=== PATIENT | female | born 1960 ===

== ENCOUNTER 2023-01-25 10:25 | Outpatient (REF) | payer MEDICAID, SELFPAY ==
[2023-01-25 12:26] LABS: Alanine Aminotransferase 27 U/L (0-31); Alkaline Phosphatase 70 U/L (39-117); Anion Gap 13 (12-20); Aspartate Amino Transferase 24 U/L (5-31); Bilirubin Direct 0.3 mg/dL (0.0-0.5); Bilirubin Total 0.7 mg/dL (0.0-1.0); Blood Urea Nitrogen 10 mg/dL (9-16); Calcium 9.2 mg/dL (8.4-10.2); Carbon Dioxide 29 mmol/L (22-29); Chloride 105 mmol/L (96-108); Cholesterol 110 mg/dL (<200); Estimated Glomerular Filt Rate > 60; Glucose Random 78 mg/dL (60-115); HDL Cholesterol 36 mg/dL (>40); LDL Cholesterol Calculated 49 mg/dL (<100); Potassium 3.6 mmol/L (3.3-5.1); Sodium 143 mmol/L (135-145); Total Protein 7.4 g/dL (6.5-8.0); Triglycerides 127 mg/dL (<150)
[2023-01-25 12:33] LABS: Estimated Average Glucose 194 mg/dL; Hemoglobin A1c % 8.4 % (<6.0)
[2023-01-25 16:08] LABS: Creatinine Urine 68.71 mg/dL
[2023-01-26 04:13] LABS: HIV AB/AG Nonreactive (Nonreactive); HIV Num 1 0.06 S/CO (0.00-0.99); ~HepC Num1 0.07 S/CO (0.00-0.79); ~Hepatitis C Antibody Nonreactive (Nonreactive)
== END 2023-01-25 10:26 | disposition home or self-care (01) ==
LOC: HO.HHCL 10:25
PROVIDERS: Visit Provider Family Medicine
DX: E11.59 Type 2 diabetes mellitus with other circulatory complications (principal); Z11.3 Encounter for screening for infections with a predominantly sexual mode of transmission; Z79.4 Long term (current) use of insulin
CPT/HCPCS: 36415; 80048; 80061; 80076; 82043; 82570; 83036; 86803; 87389

== ENCOUNTER 2023-09-16 11:04 | Outpatient (REF) | payer MEDICAID, SELFPAY ==
[2023-09-16 13:06] LABS: MANUAL DIFF FLAG NO
[2023-09-16 13:43] LABS: Basophils Absolute Auto 0.1 X10*3/uL (0.0-0.2); Basophils Percent Auto 1.9 % (0-2); Eosinophils Absolute Auto 0.1 X10*3/uL (0.0-0.4); Eosinophils Percent Auto 2.7 % (0-4); Hematocrit 42.6 % (37.0-47.0); Hemoglobin 14.3 g/dl (12.0-16.0); Imm Gran Abs Auto 0.01 X10*3/uL (0.00-0.03); Imm Gran Pct Auto 0.2 % (0.0-0.4); Lymphocytes Absolute Auto 1.7 X10*3/uL (1.2-4.9); Lymphocytes Percent Auto 32.7 % (20-40); Mean Corpuscular HGB Conc 33.6 g/dl (31.0-35.0); Mean Corpuscular Hemoglobin 30.3 pg (27.0-33.0); Mean Corpuscular Volume 90.3 fL (80.0-98.0); Mean Platelet Volume 11.6 fL (9.4-12.3); Monocytes Absolute Auto 0.6 X10*3/uL (0.1-1.2); Monocytes Percent Auto 10.5 % (2-11); Neutrophils Absolute Auto 2.7 x10*3/uL (2.0-8.3); Platelet Count 308 X10*3/uL (160-400); Red Blood Count 4.72 X10*6/uL (4.20-5.50); Red Cell Distribution Width 11.9 % (11.0-16.0); White Blood Count 5.3 X10*3/uL (4.8-10.8)
[2023-09-16 14:22] LABS: Alanine Aminotransferase 16 U/L (0-31); Albumin Level 3.7 g/dL (3.5-5.0); Alkaline Phosphatase 63 U/L (39-117); Anion Gap 12 (12-20); Aspartate Amino Transferase 15 U/L (5-31); Bilirubin Direct 0.1 mg/dL (0.0-0.5); Bilirubin Total 0.4 mg/dL (0.0-1.0); Blood Urea Nitrogen 21 mg/dL (9-16); Calcium 9.3 mg/dL (8.4-10.2); Carbon Dioxide 27 mmol/L (22-29); Chloride 105 mmol/L (96-108); Cholesterol 177 mg/dL (<200); Estimated Glomerular Filt Rate > 60; Glucose Random 213 mg/dL (60-115); HDL Cholesterol 33 mg/dL (>40); LDL Cholesterol Calculated 103 mg/dL (<100); Potassium 3.6 mmol/L (3.3-5.1); Sodium 140 mmol/L (135-145); Total Protein 7.3 g/dL (6.5-8.0); Triglycerides 207 mg/dL (<150)
== END 2023-09-16 11:05 | disposition home or self-care (01) ==
LOC: HO.HHCL 11:04
PROVIDERS: Visit Provider Internal Medicine
DX: E11.59 Type 2 diabetes mellitus with other circulatory complications (principal); Z79.4 Long term (current) use of insulin
CPT/HCPCS: 36415; 80048; 80061; 80076; 85025

== ENCOUNTER 2024-02-27 17:50 | Outpatient (REF) | payer MEDICAID, SELFPAY ==
[2024-02-28 09:00] LABS: Bacterial Vaginosis PCR NEGATIVE (Negative); Candida Group PCR NOT DETECTED (Not Detect); Candida glab krusei PCR NOT DETECTED (Not Detect); Trichomonas vaginalis PCR NOT DETECTED (Not Detect)
[2024-03-02 14:28] LABS: HPV mRNA E6/E7 Not Detected (Not Detected)
== END 2024-02-27 17:51 | disposition home or self-care (01) ==
LOC: HO.HHCLNP 17:50
PROVIDERS: Visit Provider Internal Medicine
DX: Z12.4 Encounter for screening for malignant neoplasm of cervix (principal)
CPT/HCPCS: 0352U; 87624; 88175

== ENCOUNTER 2024-07-21 14:53 | Outpatient (REF) | payer MEDICAID, SELFPAY ==
[2024-07-21 16:50] LABS: MANUAL DIFF FLAG NO
[2024-07-21 16:55] LABS: Basophils Absolute Auto 0.1 X10*3/uL (0.0-0.2); Basophils Percent Auto 1.4 % (0-2); Eosinophils Absolute Auto 0.2 X10*3/uL (0.0-0.4); Eosinophils Percent Auto 2.6 % (0-4); Hematocrit 43.3 % (37.0-47.0); Hemoglobin 14.8 g/dl (12.0-16.0); Imm Gran Abs Auto 0.02 X10*3/uL (0.00-0.03); Imm Gran Pct Auto 0.3 % (0.0-0.4); Lymphocytes Absolute Auto 1.7 X10*3/uL (1.2-4.9); Lymphocytes Percent Auto 26.4 % (20-40); Mean Corpuscular HGB Conc 34.2 g/dl (31.0-35.0); Mean Corpuscular Hemoglobin 30.1 pg (27.0-33.0); Mean Platelet Volume 11.2 fL (9.4-12.3); Monocytes Absolute Auto 0.5 X10*3/uL (0.1-1.2); Monocytes Percent Auto 8.6 % (2-11); Neutrophils Absolute Auto 3.8 x10*3/uL (2.0-8.3); Neutrophils Percent Auto 60.7 % (45-73); Platelet Count 309 X10*3/uL (160-400); Red Blood Count 4.92 X10*6/uL (4.20-5.50); Red Cell Distribution Width 12.2 % (11.0-16.0); White Blood Count 6.3 X10*3/uL (4.8-10.8)
[2024-07-21 17:11] LABS: Estimated Average Glucose 232 mg/dL; Hemoglobin A1c % 9.7 % (<6.0); Total Hemoglobin (HGBA1C) 3877.0702 umol/L
[2024-07-21 17:29] LABS: Alanine Aminotransferase 28 U/L (0-31); Albumin Level 3.8 g/dL (3.5-5.0); Alkaline Phosphatase 62 U/L (39-117); Anion Gap 11 (12-20); Aspartate Amino Transferase 30 U/L (5-31); Bilirubin Total 0.6 mg/dL (0.0-1.0); Blood Urea Nitrogen 13 mg/dL (9-16); Calcium 9.1 mg/dL (8.4-10.2); Carbon Dioxide 28 mmol/L (22-29); Chloride 108 mmol/L (96-108); Cholesterol 180 mg/dL (<200); Estimated Glomerular Filt Rate > 60; Glucose Random 149 mg/dL (60-115); HDL Cholesterol 34 mg/dL (>40); LDL Cholesterol Calculated 104 mg/dL (<100); Potassium 3.7 mmol/L (3.3-5.1); Sodium 143 mmol/L (135-145); Total Protein 7.6 g/dL (6.5-8.0); Triglycerides 210 mg/dL (<150)
[2024-07-21 17:35] LABS: TSH reflex Free T4 0.89 uIU/mL (0.32-4.0)
--- OUTSIDE RECORDS SUMMARY | 2024-07-21 18:13 | XMS_ITS | Encounter Summary ---
Author Organization [facility] Address [address] [place] [address] Care Team Providers Care Customs Examiner Name Role Phone Renetta Smalls APRN Primary Care [facility] Reason for Visit * Reason Onset Date Comments Medication Refill 05/28/2023 Encounter Details Date Type Department Care Team (Late st Contact Info) Description 05/28/2023 Refill [facility] [address] [place] [address] Renetta Smalls APRN [address] [place] [address] Medication Refill Social History Tobacco Use Types Packs/Day Years Used Date Smoking Tobacco: Former Cigarettes Q uit: 1997 Smokeless Tobacco: Never Alcohol Use Standard Drinks/Week Comments Never 0 (1 standard drink = 0.6 oz pur e alcohol) Overall Financial Resource Strain (CARDIA) Answe r Date Recorded How hard is it for you to pa y for the very basics like food, housing, medical care, and heating? Somewhat hard 09/25/2022 PHQ-2 Answer Date Recorded PHQ-2 Total Score 2 11/07/2022 Hunger Vital Sign Answer Date Recorded Within the past 12 months, y ou worried that your food would run out before you got the money to buy more. Sometimes true Within the past 12 months, t he food you bought just didn't last and you didn't have money to get more. Sometimes true PRAPARE - Transportation Answer Date Re corded In the past 12 months, has l ack of transportation kept you from medical appointments or from getting medications? No 09/10 In the past 12 months, has l ack of transportation kept you from meetings, work, or from getting things needed for daily living? No 09/25/2022 Housing Stability Answer Date Recorded Housing Stability I have a steady place to live 09/25/2022 Interpersonal Safety Answer Date Record ed Is there anyone in your life that is hurting or threatening you in anyway? Not on file 06/27/2022 Physical Indicators of Abuse No evidence of phys ical abuse 06/27/2022 Comments No Sex and Gender Information Value Date Recorded Sex Assigned at Female 06/22/2022 8:27 PM EST Legal Sex Female 6:04 AM EST Gender Identity Female 06/22/2022 8:27 PM EST Sexual Orientation Straight 06/22/2022 8: 27 PM EST documented as of this encounter Plan of Treatment Not on file documented as of this encounter Visit Diagnoses Diagnosis Type II diabetes mellitus with hyperosmolarity, uncontrolled (HC Code) Type II or unspecified type diabetes mellitus with hyperosmolarity, uncontrolled Depression, unspecified depression type Primary hypertension Unspecified essential hypertension Sciatica, unspecified laterality Cerebrovascular accident (CVA), unspecified mechanism (HC Code) Encounter for medical examination to establish care documented in this encounter Additional Health Concerns Assessment Noted Time PHQ-9 Depression Total Score: 2 11/08/19 23 9:58 AM EDT documented as of this encounter Care Teams Customs Examiner Relationship Specialty Start Date End Date Renetta Smalls APRN PCP - General 11/08/22 documented as of this encounter
--- OUTSIDE RECORDS SUMMARY | 2024-07-21 18:13 | XMS_ITS | Encounter Summary ---
Author Organization [facility] Address [address] [place] [address] Care Team Providers Care Postdoctoral Research Fellow Name Role Phone Renetta Smalls APRN Primary Care [facility] Encounter Details Date Type Department Care Team (Late st Contact Info) Description 05/11/2022 Scanned Document [facility] [address] [place] [address] Wade Light, GALLERY DIRECTOR [address] [place] [phone] Social History Tobacco Use Types Packs/Day Years Used Date Smoking Tobacco: Never Assessed Comments Unknown Sex and Gender Information Value Date Recorded Sex Assigned at Female 06/22/2022 8:27 PM EST Legal Sex Female 6:04 AM EST Gender Identity Female 06/22/2022 8:27 PM EST Sexual Orientation Straight 06/22/2022 8: 27 PM EST documented as of this encounter Plan of Treatment Not on file documented as of this encounter Visit Diagnoses Not on filedocumented in this encounter Care Teams Postdoctoral Research Fellow Relationship Specialty Start Date End Date Renetta Smalls APRN PCP - General 11/08/22 documented as of this encounter
--- OUTSIDE RECORDS SUMMARY | 2024-07-21 18:13 | XMS_ITS | Clinical Summary ---
Author Organization [address] Address [address] [place] [address] Phone Care Team Providers Care Silviculture Forester Name Role Phone Sandy Smallsca Brooke MADHURI Primary Care [facility] Allergies No known active allergies Medications * This document contains information received from the source organization and may not represent a complete record from that organization. insulin lispro (ADMELOG, HUMALOG) 100 unit/mL vial Inject 48 Units under the skin daily before breakfast. Active EASY TOUCH ALCOHOL PREP PADS PadMIndications: Type II diabetes mellitus with hyperosmolarity, uncontrolled (HC Code) USE ONCE DAILY .... FOR EXTERNAL USE ONLY 3 Active buPROPion SR (WELLBUTRIN SR) 100 mg 12 hr tabletIndication s:Depression, unspecified depression type TAKE 1 TABLET BY MOUTH EVERY MORNING ... MAY CAUSE DROWSINESS 3 Active TRUEPLUS LANCETS 33 gaugeIndications :Type II diabetes mellitus with hyperosmolarity, uncontrolled (HC Code) USE ONCE DAILY 3 Active lisinopriL (PRINIVIL,ZESTRI L) 20 mg tabletIndication s:Primary hypertension Take 1 tablet (20 mg total) by mouth daily. 3 Active CERTAVITE-ANTIOX IDANT 18-400 mg-mcg Take 1 tablet by mouth daily. 3 Active Miscellaneous Medical SupplyIndication s:Sciatica, unspecified laterality,Cereb rovascular accident (CVA), unspecified mechanism (HC Code) Use as directed. 1 each 3 Active atorvastatin (LIPITOR) 80 mg tabletIndication s:Encounter for medical examination to establish care TAKE 1 TABLET (80 MG TOTAL) BY MOUTH DAILY. 30 tablet 5 3 Active aspirin 81 mg chewable tabletIndication s:Encounter for medical examination to establish care TAKE 1 TABLET (81 MG TOTAL) BY MOUTH DAILY. 90 tablet 3 Active metoprolol succinate XL (TOPROL-XL) 25 mg 24 hr tablet TAKE 1 TABLET (25 MG TOTAL) BY MOUTH DAILY. TAKE WITH OR IMMEDIATELY FOLLOWING A MEAL. 30 tablet 5 3 Active clopidogreL (PLAVIX) 75 mg tabletIndication s:Encounter for medical examination to establish care TAKE 1 TABLET (75 MG TOTAL) BY MOUTH DAILY. 30 tablet 3 Active gabapentin (NEURONTIN) 100 mg capsule TAKE 1 CAPSULE (100 MG TOTAL) BY MOUTH 3 (THREE) TIMES DAILY WITH MEALS. 90 capsule 3 Active BASAGLAR KWIKPEN U-100 INSULIN 100 UNIT/ML (3 ML) SUBCUTANEOUS PENIndications:E ncounter for medical examination to establish care Inject 48 Units under the skin daily. 14.4 mL 2 4 Active BD ULTRA-FINE KAEL PEN NEEDLE 32 gauge x Indications :Type II diabetes mellitus with hyperosmolarity, uncontrolled (HC Code) Inject under the skin daily. Use with insulin pen. 100 each 11 4 Active Active Problems Problem Noted Date Diagnosed Date Depression, unspecified depression type 10/19/19 23 Assessment & Plan (11/28/2022 10:58 AM EDT): -Provided patient with phone number for mental health and she will call to schedule appointment Assessment & Plan (10/18/2022 5:11 PM EDT): -Positive depression screening -Patient reports low mood since move to [place] Type II diabetes mellitus wi th hyperosmolarity, uncontrolled 10/18/2022 Primary hypertension 10/18/2022 Guo angioma 10/18/2022 Assessment & Plan (11/28/2022 10:57 AM EDT): Images from the original note were not included. -Ddx: Guo angioma, angiokeratoma, spider telangiectasis, glomuluroid hematoma -Patient would like this to be removed Assessment & Plan (10/18/2022 5:15 PM EDT): Images from the original note were not included. -Ddx: Guo angioma, angiokeratoma, spider telangiectasis, glomuluroid hematoma -Discussed that this was not something that needs to be removed -Patient would like to discuss possible removal at next appointment Sciatica 09/19/2022 Assessment & Plan (11/28/2022 10:54 AM EDT): -Continue with physical therapy TIA (transient ischemic attack) 04/10/2022 Stroke 04/10/2022 Assessment & Plan (11/28/2022 10:54 AM EDT): -Followed by neurology -Continue with physical therapy Assessment & Plan (10/18/2022 5:17 PM EDT): -Followed by neurology -Continue with physical therapy Resolved Problems Problem Noted Date Diagnosed Date Resolved Date Left upper quadrant abdominal mass 10/18/2022 10/18/2022 Family History Medical History Relation Name Comments Diabetes Father Hypertension Father Diabetes Mother Hypertension Mother Breast cancer Sister Colon cancer Neg Hx Ovarian cancer Neg Hx Uterine cancer Neg Hx Relation Name Status Comments Father Mother Sister Alive Social History Tobacco Use Types Packs/Day Years Used Date Smoking Tobacco: Former Cigarettes Q uit: 1997 Smokeless Tobacco: Never Tobacco Cessation:Counseling Given: Not Answered Alcohol Use Standard Drinks/Week Comments Never 0 [...] Orientation Straight 06/22/2022 8: 27 PM EST Last Filed Vital Signs Vital Sign Reading Time Taken Comments Blood Pressure 119/71 11/28/2022 10:07 AM EDT Pulse 67 11/28/2022 10:07 AM EDT Temperature 36.9 ??C (98.4 ??F) 11/07/2022 9:59 AM ED T Respiratory Rate 16 11/28/2022 10:07 AM EDT Oxygen Saturation 94% 11/28/2022 10:07 AM EDT Inhaled Oxygen Concentration - - Weight 68.9 kg (152 lb) 11/28/2022 10:07 AM EDT Height 157.5 cm (5' 2 ) 11/28/2022 10:07 AM EDT Body Mass Index 27.8 11/28/2022 10:07 AM EDT Plan of Treatment Health Maintenance Due Date Last Done Comments Pneumococcal Vaccine (50+ years) (1 of 2 - PCV) 1964 Diabetic eye exam 1968 Diabetic foot exam 1968 Tetanus adult (Td q 10,TDAP once) 1978 Breast cancer screening 1998 Colon cancer screening,FIT/FOBT,Annual 2003 Shingles vaccine (Shingrix) (1 of 2 - Shingrix (RZV) 2 Dose Standard Series) 2008 RSV Discussion (1 - Risk 60-74 years 1-dose series) 2018 Hemoglobin A1C 02/28/2023 11/28/2022, 04/10/2022, 04/10/2022 Osteoporosis screening (bone density) 2023 LDL monitoring 11/29/2023 11/28/2022, 04/10/2022 Urine Microalbumin 11/29/2023 11/28/2022 Influenza vaccine 12/12/2023 Covid-19 vaccine series ( season) 2024 Cervical cancer screening Discontinued 11/07/2022 HIV screening Completed 11/28/2022 Hepatitis C screening Completed 11/28/2022 Colon cancer screening, Colonoscopy Discontinued Meningococcal Vaccine Aged Out No dominique antonietta eligible based on patient's age to complete this topic Procedures Procedure Name Priority Date/Time Associated Diagnosis Comments HEMOGLOBIN A1C Routine 11/28/2022 10:53 AM EDT Encounter for medical examination to establish care LIPID PANEL Routine 11/28/2022 10:53 AM EDT Encounter for medical examination to establish care HIV 1/2 AG/AB, W/REFLEXES (Q) Routine 11/28/2022 10:50 AM EDT Well woman exam with routine gynecological exam Screening examination for STD (sexually transmitted disease) HEPATITIS C AB WITH REFLEX TO HCV PCR Routine 11/28/2022 10:50 AM EDT Well woman exam with routine gynecological exam Screening examination for STD (sexually transmitted disease) ALBUMIN/CREATININE PANEL, URINE, RANDOM Routine 11/28/2022 10:47 AM EDT Type II diabetes mellitus with hyperosmolarity, uncontrolled (HC Code) (HC CODE) (HC Code) THINPREP TIS PAP AND HPV MRNA E6/E7, C. TRACHOMATIS/N. GONORRHOEAE(Q) Routine 11/07/2022 10:22 AM EDT Well woman exam with routine gynecological exam Screening examination for STD (sexually transmitted disease) from Last 3 Months or Most Recently Relevant to Health Maintenance Results * (ABNORMAL) Hemoglobin A1c (11/28/2022 10:53 AM EDT) Hemoglobin A1c 9.0(H) <5.7 % of total Hgb [facility] Comment: For someone without known diabetes, a hemoglobin A1c value of 6.5% or greater indicates that they may have diabetes and this should be confirmed with a follow-up test. For someone with known diabetes, a value <7% indicates that their diabetes is well controlled and a value greater than or equal to 7% indicates suboptimal control. A1c targets should be individualized based on duration of diabetes, age, comorbid conditions, and other considerations. Currently, no consensus exists regarding use of hemoglobin A1c for diagnosis of diabetes for children. ?? Blood 11/28/2022 10:5 3 AM EDT 11/28/2022 10:54 AM EDT [facility] - 11/29/2022 7:00 AM EDT FASTING:NO COLLECTION KIT GIVEN TO PATIENT. PATIENT ADVISED TO RETURN. FASTING: NO Resulting Agency Comment Performing Lab: ?Site ID: [id number] ?Name: [facility] ?Address: [address] [place] [phone] ?Director: Jose España M.D. Renetta Smalls FISCAL SERVICES DIRECTOR LAB BLOOD ORDERABLE S Final Result Performing Organization Address City/State/[facility] Co de Phone Number [facility] [address] [place] [address] * (ABNORMAL) Lipid panel (11/28/2022 10:53 AM EDT) Cholesterol, Total 122 <200 mg/dL [facility] HDL 32(L) > OR = 50 mg/dL [facility] Triglycerides 279(H) <150 mg/dL [facility] Comment: If a non-fasting specimen was collected, consider repeat triglyceride testing on a fasting specimen if clinically indicated. George et al. J. of Clin. Lipidol. 2015;9:129-169. LDL Cholesterol 57 mg/dL (calc) [facility] Comment: Reference range: <100 Desirable range <100 mg/dL for primary prevention; ?? <70 mg/dL for patients with CHD or diabetic patients with > or = 2 CHD risk factors. LDL-C is now calculated using the Rashel calculation, which is a validated novel method providing better accuracy than the Friedewald equation in the estimation of LDL-C. Manny GORDILLO et al. TRISHA. 2013;310(19): 3519-6485 (http://education.GigaLogix/faq/CTH988) Chol/HDL Ratio 3.8 <5.0 (calc) [facility] Non-HDL Cholesterol 90 <130 mg/dL (calc) [facility] Comment: For patients with diabetes plus 1 major ASCVD risk factor, treating to a non-HDL-C goal of <100 mg/dL (LDL-C of <70 mg/dL) is considered a therapeutic option. Blood 11/28/2022 10:5 3 AM EDT 11/28/2022 10:54 AM EDT Narrative [facility] - 11/29/2022 7:00 AM EDT FASTING:NO COLLECTION KIT GIVEN TO PATIENT. PATIENT ADVISED TO RETURN. FASTING: NO Resulting Agency Comment Performing Lab: ?Site ID: [id number] ?Name: [facility] ?Address: [address] [place] [phone] ?Director: Jose España M.D. Renetta Smalls FISCAL SERVICES DIRECTOR LAB BLOOD ORDERABLE S Final Result [facility] [address] [place] [address] * HIV 1/2 ag/ab, w/reflexes (Q) (11/28/2022 10:50 AM EDT) [facility] HIV Ag/Ab, 4th Generation NON-REACT NEREIDA NON-REACT NEREIDA [facility] Comment: HIV-1 antigen and HIV-1/HIV-2 antibodies were not detected. There is no laboratory evidence of HIV infection. PLEASE NOTE: This information has been disclosed to you from records whose confidentiality may be protected by state law. ??If your state requires such protection, then the state law prohibits you from making any further disclosure of the information without the specific written consent of the person to whom it pertains, or as otherwise permitted by law. A general authorization for the release of medical or other information is NOT sufficient for this purpose. ?? For additional information please refer to http://Access Systems.FreeATM/faq/OJU895 (This link is being provided for informational/ educational purposes only.) The performance of this assay has not been clinically validated in patients less than 2 years old. Blood 11/28/2022 10:5 0 AM EDT 11/28/2022 10:51 AM EDT [facility] - 11/30/2022 12:53 PM EDT FASTING:NO FASTING: NO Resulting Agency Comment Performing Lab: ?Site ID: [id number] ?Name: [facility] ?Address: [address] [place] [phone] ?Director: Jose España M.D. Kristie Thompson [facility] LAB BLOOD ORDERABLE S Final Result Performing Organization Address City/State/[facility] Co de Phone Number [facility] [address] [place] [address] * Hepatitis C Ab with reflex to HCV PCR (11/28/2022 10:50 AM EDT) Hepatitis C Ab NON-REACT NEREIDA NON-REACT NEREIDA [facility] Comment: HCV antibody was non-reactive. There is no laboratory evidence of HCV infection. In most cases, no further action is required. However, if recent HCV exposure is suspected, a test for HCV RNA (test code 50792) is suggested. For additional information please refer to http://Access Systems.FreeATM/faq/ODE80n5 (This link is being provided for informational/ educational purposes only.) Blood 11/28/2022 10:5 0 AM EDT 11/28/2022 10:51 AM EDT Narrative [facility] - 11/30/2022 12:53 PM EDT FASTING:NO FASTING: NO Resulting Agency Comment Performing Lab: ?Site ID: [id number] ?Name: [facility] ?Address: [address] [place] [phone] ?Director: Jose España M.D. Kristie Thompson [facility] LAB BLOOD ORDERABLE S Final Result Performing Organization Address [facility] de Phone Number [facility] [address] [place] [address] * Albumin/creatinine panel, urine, random (11/28/2022 10:47 AM EDT) Creatinine, Random Urine 244 20 - 275 mg/dL [facility] Microalbumin, Urine 2.9 See Note: mg/dL [facility] Comment: Reference Range: Reference Range Not established Microalb Creat Ratio 12 <30 mcg/mg creat [facility] Comment: The ADA defines abnormalities in albumin excretion as follows: Albuminuria Category ?Result (mcg/mg creatinine) Normal to Mildly increased ?? <30 Moderately increased ? 30-299 Severely increased ? > OR = 300 The ADA recommends that at least two of three specimens collected within a 3-6 month period be abnormal before considering a patient to be within a diagnostic category. Urine 11/28/2022 10:4 7 AM EDT 11/28/2022 10:48 AM EDT Narrative [facility] - 11/29/2022 6:34 PM EDT FASTING:NO FASTING: NO Resulting Agency Comment Performing Lab: ?Site ID: [id number] ?Name: [facility] ?Address: [address] [place] [phone] ?Director: Jose España M.D. us Renetta Smalls FISCAL SERVICES DIRECTOR URINE ORDERABLES Fi nal Result Performing Organization Address [facility] Co de Phone Number [facility] [address] [place] [address] * ThinPrep TIS Pap, with HPV mRNA E6/E7, +GC/CT (Q) (11/07/2022 10:22 AM EDT) Clinical Information [facility] Comment:None given Lmp: [facility] Comment:NONE GIVEN Prev. Pap: [facility] Comment:NONE GIVEN Prev. Bx: [facility] Comment:NONE GIVEN Source: [facility] Comment:None given Statement Of Adequacy: [facility] Comment: Satisfactory for evaluation. Endocervical/transformation zone component present. Interpretation/Res ult: [facility] Comment:Negative for intraep ithelial lesion or malignancy. Comment: [facility] Comment: This Pap test has been evaluated with computer assisted technology. Food Service Assistant: [facility] Comment: KR, CT(ASCP) CT screening location: [address] ??[id number] Comment [facility] Comment: EXPLANATORY NOTE: The Pap is a screening test for cervical cancer. It is not a diagnostic test and is subject to false negative and false positive results. It is most reliable when a satisfactory sample, regularly obtained, is submitted with relevant clinical findings and history, and when the Pap result is evaluated along with historic and current clinical information. HPV mRNA E6/E7 Not Detected Not Detected [facility] Comment: Methodology: Craps Manager-Mediated Amplification This assay detects E6/E7 viral messenger RNA (mRNA) from 14 high-risk HPV types (16,18,31,33,35,39,45,51,52,56,58,59,66,68). Cervical sources are required for HPV testing. If a vaginal source from a patient who has had a total hysterectomy with removal of cervix was submitted, please contact the testing laboratory for alternative testing options. For additional information, please refer to http://Access Systems.FreeATM/faq/SET966v5 (This link if provided for information/ educational purposes only.) C. trachomatis RNA, TMA NOT DETECTED NOT DETECTED [facility] Neisseria gonorrhoeae RNA, TMA NOT DETECTED NOT DETECTED [facility] Comment [facility] Comment: The analytical performance characteristics of this assay, when used to test SurePath(TM) specimens have been determined by [employer]. The modifications have not been cleared or approved by the FDA. This assay has been validated pursuant to the CLIA regulations and is used for clinical purposes. For additional information, please refer to https://education.FreeATM/faq/UOZ558 (This link is being provided for information/ educational purposes only.) Cervical 11/07/2022 10:2 2 AM EDT 11/09/2022 3:14 AM EDT Narrative Resulting Agency Comment Performing Lab: ?Site ID: [id number] ?Name: [facility] ?Address: [address] [place] [phone] ?Director: Jose España M.D. Kristie Thompson [employer] BODY FLUIDS AND STO OLS ORDERABLES Final Result [facility] [address] [place] [address] from Last 3 Months or Most Recently Relevant to Health Maintenance Insurance [place] Advance Directives * Full ACLS (Latest Code Status on File) Date Activated Date Inactivated Comments 04/10/2022 7:58 AM 04/10/2022 10:11 PM Question Answer Comments With Whom was the Code Status Discussed? Patient Care Teams Silviculture Forester Relationship Specialty Start Date End Date Renetta Smalls APRN PCP - General 11/08/22
--- OUTSIDE RECORDS SUMMARY | 2024-07-21 18:13 | XMS_ITS | Encounter Summary ---
Author Organization [facility] Address [address] [place] [address] Care Team Providers Care Perfumer Name Role Phone Renetta Smalls APRN Primary Care Provi [facility] Reason for Visit * Reason Onset Date Comments Medication Refill 05/27/2023 Encounter Details Date Type Department Care Team (Late st Contact Info) Description 05/27/2023 Refill [facility] [address] [place] [address] Renetta Smalls APRN [address] [place] [address] Medication Refill Social History Tobacco Use Types [...] depression type Primary hypertension Unspecified essential hypertension Encounter for medical examination to establish care documented in this encounter Additional Health Concerns Assessment Noted Time PHQ-9 Depression Total Score: 2 11/08/19 23 9:58 AM EDT documented as of this encounter Care Teams Perfumer Relationship Specialty Start Date End Date Renetta Smalls APRN PCP - General 11/08/22 documented as of this encounter
--- OUTSIDE RECORDS SUMMARY | 2024-07-21 18:13 | XMS_ITS | Encounter Summary ---
Author Organization [facility] Address [address] [place] [address] Care Team Providers Care Architectural Design Lecturer Name Role Phone Renetta Smalls APRN Primary Care Provi [facility] Reason for Visit * Reason Comments Medication Refill Encounter Details Date Type Department Care Team (Late st Contact Info) Description 11/09/2022 Refill [facility] [address] [place] [address] Renetta Smalls APRN [address] [place] [address] Medication Refill Social History Tobacco Use Types [...] as of this encounter Visit Diagnoses Diagnosis Encounter for medical examination to establish care documented in this encounter Additional Health Concerns Assessment Noted Time PHQ-9 Depression Total Score: 2 11/08/19 9:58 AM EDT documented as of this encounter Care Teams Architectural Design Lecturer Relationship Specialty Start Date End Date Renetta Smalls APRN PCP - General 11/08/22 documented as of this encounter
--- OUTSIDE RECORDS SUMMARY | 2024-07-21 18:13 | XMS_ITS | Encounter Summary ---
Author Organization [facility] Address [address] [place] [address] Care Team Providers Care Fire Pot Operator Name Role Phone Renetta Smalls APRN Primary Care [facility] Reason for Visit * Reason Comments Medication Refill Encounter Details Date Type Department Care Team (Late st Contact Info) Description 12/19/2022 Refill [facility] [address] [place] [address] Renetta Smalls APRN [address] [place] [address] Medication Refill Social History Tobacco Use Types [...] as of this encounter Visit Diagnoses Diagnosis Sciatica, unspecified laterality Cerebrovascular accident (CVA), unspecified mechanism (HC Code) documented in this encounter Additional Health Concerns Assessment Noted Time PHQ-9 Depression Total Score: 2 11/08/19 23 9:58 AM EDT documented as of this encounter Care Teams Fire Pot Operator Relationship Specialty Start Date End Date Renetta Smalls APRN PCP - General 11/08/22 documented as of this encounter
[2024-07-22 04:15] LABS: HIV AB/AG Nonreactive (Nonreactive); HIV Num 1 0.07 S/CO (0.00-0.99); ~HepC Num1 0.13 S/CO (0.00-0.79); ~Hepatitis C Antibody Nonreactive (Nonreactive)
== END 2024-07-21 14:54 | disposition home or self-care (01) ==
LOC: HO.HHCL 14:53
PROVIDERS: Visit Provider Internal Medicine
DX: E11.59 Type 2 diabetes mellitus with other circulatory complications (principal); Z79.4 Long term (current) use of insulin
CPT/HCPCS: 36415; 80053; 80061; 82306; 83036; 84443; 85025; 86803; 87389